=== PATIENT | male | born 1990 ===

== ENCOUNTER 2019-03-03 18:16 | Outpatient (REF) | payer OTHER, SELFPAY ==
[2019-03-03 21:41] LABS: Abs Immature Grans 0.01 k/cumm (0.0-0.09); Absolute Basophil Count 0.01 k/cumm (0.0-0.2); Absolute Eosinophil Count 0.14 k/cumm (0.0-0.7); Absolute Neutrophil Count 4.24 k/cumm (1.2-6.7); Basophils % 0.1; HCT 45.6 % (40.0-50.0); HGB 15.6 g/dL (13.5-17.5); Immature Grans % 0.1; Lymphocytes % 28.2; Mean Corp. HGB Concentration 34.2 g/dL (32.0-36.0); Mean Corpuscular Hemoglobin 29.4 pg (27.0-33.0); Mean Platelet Volume 11.1 fL (8.0-11.0); Monocytes % 9.9; Neutrophils % 59.7; Platelet Count 319 x1000/uL (130-400)
[2019-03-03 22:17] LABS: ALT 54 U/L (16-63); AST 20 U/L (15-37); Albumin 4.4 g/dL (3.4-5.0); Alkaline Phosphatase 75 U/L (46-116); Anion Gap 7.5 mmol/L (3-11); BUN 16 mg/dL (7-18); Bilirubin, Total 0.6 mg/dL (0.2-1.0); CO2 31.5 mmol/L (21.0-32.0); CREATININE 0.92 mg/dL (0.70-1.30); Calcium 9.6 mg/dL (8.5-10.1); Chloride 105 mmol/L (98-107); Cholesterol 211 mg/dL (50-200); Glucose 108 mg/dL (70-100); HDL Cholesterol 27 mg/dL (40-60); Potassium 4.9 mmol/L (3.5-5.1); Sodium 144 mmol/L (136-145); Total Protein 8.1 g/dL (6.4-8.2); Triglyceride 540 mg/dL (30-150)
[2019-03-03 22:30] LABS: Lipase 143 U/L (73-393)
[2019-03-03 22:41] LABS: LDL CHOLESTEROL 140 mg/dL (<100)
== END 2019-03-03 18:36 ==
LOC: NCHCN 18:16
PROVIDERS: Visit Provider Internal Medicine
DX: R10.9 Unspecified abdominal pain (principal)
CPT/HCPCS: 80053; 80061; 83690; 83721; 85025